=== PATIENT | male | born 1965 | race Caucasian/White ===

== ENCOUNTER 2020-05-23 18:54 | Observation (INO) ==
[2020-05-23] MEDS ORDERED: ALBUTEROL HFA 8 GM INHALER INH ONE (19:29)
[2020-05-23] MEDS ORDERED: SODIUM CHLORIDE 0.9% 1000ML 1,000 ML IV ONE (19:29)
--- NOTE | 2020-05-23 20:22 | Emergency Department Note ---
History of Present Illness General Chief complaint: Shortness of Breath/Dyspnea Stated complaint: COVID +, SHORT OF BREATH Time Seen by Provider: 05/23/20 19:03 History of Present Illness This patient is a 54-year-old male who presents ambulatory to the emergency department with complaints of an ongoing nonproductive cough, low-grade fever, flulike symptoms and shortness of breath that has gotten progressively worse over the last 2 weeks. The patient tested positive for Covid last week. He denies any nausea or vomiting. He has not received any medication for his symptoms. His appetite has decreased, however he is still urinating and defecating normally. Home Medications Medication Instructions Recorded Confirmed Type Mucinex Fast-Max Congest-Cough 10 ml PO HS PRN 05/23/20 05/27/20 History acetaminophen [Tylenol Extra 1,000 mg PO TID PRN 05/23/20 05/27/20 History Strength] dexamethasone 6 mg PO DAILY #8 tab 05/24/20 05/27/20 Rx Allergies Allergy/AdvReac Type Severity Reaction Status Date / Time UNKNOWN HERPES ZOSTER MED AdvReac Unknown Uncoded 05/27/20 15:11 Past Med/Surg History Medical History No pertinent past medical history Social History Smoking Status: Never smoker Second Hand Exposure: No; Hx Alcohol Use: Yes Alcohol type: beer Preferred Language: Cymraes Communication Ability: Effective Beliefs That Will Affect Care: None Current Living Situation: Spouse Feels Safe at Home: Yes Assistive Devices: None Review of Systems A total of 10 systems reviewed and were otherwise negative Physical Exam Vital Signs Vital Signs - 24 hr 05/23/20 19:26 05/23/20 19:51 05/23/20 20:00 Pulse Rate 83 82 Pulse Rate from SpO2 Sensor Respiratory Rate 18 21 Respiratory Effort / Characteristics Non-Labored Spontaneous Respiratory Pattern Regular Blood Pressure Blood Pressure Mean Pulse Oximetry Oxygen Delivery Method Room Air Room Air Room Air 05/23/20 20:06 05/23/20 20:10 05/23/20 20:20 Pulse Rate 76 73 73 Pulse Rate from SpO2 Sensor 76 73 73 Respiratory Rate 25 H 21 21 Respiratory Effort / Characteristics Respiratory Pattern Blood Pressure 133/91 Blood Pressure Mean 98 Pulse Oximetry 94 92 93 Oxygen Delivery Method Room Air Room Air Room Air 05/23/20 20:30 05/23/20 20:31 05/23/20 20:40 Pulse Rate 74 71 74 Pulse Rate from SpO2 Sensor 74 72 73 Respiratory Rate 19 21 10 L Respiratory Effort / Characteristics Respiratory Pattern Blood Pressure 137/88 Blood Pressure Mean 99 Pulse Oximetry 94 93 94 Oxygen Delivery Method Room Air Room Air Room Air 05/23/20 20:50 05/23/20 21:00 05/23/20 21:01 Pulse Rate 75 80 82 Pulse Rate from SpO2 Sensor 75 82 82 Respiratory Rate 19 23 26 H Respiratory Effort / Characteristics Respiratory Pattern Blood Pressure 149/88 H Blood Pressure Mean 98 Pulse Oximetry 93 94 94 Oxygen Delivery Method Room Air Room Air Room Air 05/23/20 21:10 05/23/20 21:20 05/23/20 21:30 Pulse Rate 75 78 78 Pulse Rate from SpO2 Sensor 75 79 78 Respiratory Rate 24 24 24 Respiratory Effort / Characteristics Respiratory Pattern Blood Pressure 136/90 Blood Pressure Mean 109 Pulse Oximetry 93 93 93 Oxygen Delivery Method Room Air Room Air Room Air 05/23/20 21:31 05/23/20 21:40 05/23/20 21:50 Pulse Rate 75 76 79 Pulse Rate from SpO2 Sensor 75 77 79 Respiratory Rate 22 25 H 24 Respiratory Effort / Characteristics Respiratory Pattern Blood Pressure Blood Pressure Mean Pulse Oximetry 93 92 91 Oxygen Delivery Method Room Air Room Air Room Air 05/23/20 22:10 05/23/20 22:20 05/23/20 22:30 Pulse Rate 80 76 76 Pulse Rate from SpO2 Sensor 80 76 76 Respiratory Rate 22 17 23 Respiratory Effort / Characteristics Respiratory Pattern Blood Pressure 137/82 Blood Pressure Mean 102 Pulse Oximetry 94 93 93 Oxygen Delivery Method Room Air Room Air Room Air 05/23/20 22:31 05/23/20 22:40 05/23/20 22:50 Pulse Rate 82 78 80 Pulse Rate from SpO2 Sensor 84 78 79 Respiratory Rate 26 H 23 22 Respiratory Effort / Characteristics Respiratory Pattern Blood Pressure Blood Pressure Mean Pulse Oximetry 93 92 91 Oxygen Delivery Method Room Air Room Air Room Air 05/23/20 23:00 05/23/20 23:01 Pulse Rate 77 76 Pulse Rate from SpO2 Sensor 78 76 Respiratory Rate 19 27 H Respiratory Effort / Characteristics Respiratory Pattern Blood Pressure 144/82 H Blood Pressure Mean 93 Pulse Oximetry 94 94 Oxygen Delivery Method Room Air Room Air Constitutional WD/WN, vitals as above Eyes EOM intact bilaterally ENMT external ear and nose normal, oropharynx normal Neck trachea midline Respiratory Tachypnea noted. No wheezing or rhonchi auscultated. Cardiovascular RRR, no murmur, no edema Gastrointestinal (Abdomen) normal bowel sounds, soft, nontender, no hepatosplenomegaly Musculoskeletal no cyanosis or clubbing, extremities motor strength 5/5 Skin no rashes, warm and dry Neurologic Alert and oriented x3. No focal motor deficits. Psychiatric Acting appropriately Course Course Patient was seen and examined Vital signs including blood pressure were reviewed medications list was verified with patient Labs were obtained, and a saline lock was established An order was placed for continuous cardiac monitoring. The monitor shows a rate of normal sinus with 70 rhythm. When I reevaluated the patient, he is not feeling much better. We discussed his results. He voiced understanding, and was comfortable with the disposition. The case was discussed with the [facility]. They agreed to evaluate the patient for possible inpatient management. He was ordered IV antibiotics and remained stable in the emergency department. Administered Medications Discontinued Medications Albuterol (Albuterol Hfa 8 Gm Inhaler) 2 puffs INH NOW ONE Stop: 05/23/20 19:30 Last Admin: 05/23/20 20:45 Dose: 2 puffs Documented by: [id number] Benzonatate (Benzonatate 100 Mg Capsule) 100 mg PO TID [facility] Stop: 06/23/20 08:59 Last Admin: 05/24/20 14:16 Dose: 100 mg Documented by: [id number] Admin: 05/24/20 09:15 Dose: 100 mg Documented by: [id number] Dexamethasone (Dexamethasone Sod Inj 4 Mg/Ml Vial) 6 mg IV NOW STA Stop: 05/23/20 22:56 Last Admin: 05/23/20 23:26 Dose: 6 mg Documented by: [id number] Enoxaparin Sodium (Enoxaparin Inj 40 Mg/0.4 Ml Syr) 40 mg SQ Q12H KYLER Stop: 06/23/20 00:49 Last Admin: 05/24/20 09:16 Dose: 40 mg Documented by: [id number] Admin: 05/24/20 01:48 Dose: 40 mg Documented by: [id number] Guaifenesin (Guaifenesin 600 Mg Tabcr) 1,200 mg PO Q12 KYLER Stop: 06/23/20 08:59 Last Admin: 05/24/20 09:15 Dose: 1,200 mg Documented by: [id number] Sodium Chloride (Nss 1000ml) 1,000 mls @ 999 mls/hr IV .Q1H1M ONE Stop: 05/23/20 20:29 Last Infusion: 05/23/20 21:15 Dose: 0 mls/hr Documented by: [id number] Admin: 05/23/20 20:06 Dose: 999 mls/hr Documented by: [id number] Azithromycin 500 mg/ Dextrose 255 mls @ 125 mls/hr IV ONE ONE Stop: 05/24/20 00:35 Last Infusion: 05/24/20 01:35 Dose: 0 mls/hr Documented by: [id number] Admin: 05/23/20 23:26 Dose: 125 mls/hr Documented by: [id number] Ceftriaxone Sodium (Rocephin) 2,000 mg in 70 mls @ 140 mls/hr IV NOW STA Stop: 05/23/20 23:02 Last Infusion: 05/24/20 01:36 Dose: 0 mls/hr Documented by: [id number] Admin: 05/23/20 23:00 Dose: 140 mls/hr Documented by: [id number] Dexamethasone Sodium Phosphate (6 mg/ Syringe) 1.5 mls @ 1 mls/min IV DAILY KYLER Stop: 06/23/20 08:59 Last Admin: 05/24/20 09:16 Dose: 1 mls/min Documented by: [id number] Ioversol (Optiray 320 125ml) 119 ml IV ONCE ONE Stop: 05/23/20 22:03 Last Admin: 05/23/20 22:03 Dose: 119 ml Documented by: [id number] Medical Decision Making Medical Records Attestation: I reviewed the patient's medical records. Home Medications Current Medication List: was personally reviewed by me Laboratory Data Attestation: I reviewed the patient's lab results. Result diagrams: 05/24/20 01:20 05/24/20 01:20 Lab Results 05/23/20 05/23/20 05/23/20 Range/Units 20:07 20:07 20:07 WBC Cancelled RBC Cancelled Hgb Cancelled Hct Cancelled MCV Cancelled MCH Cancelled MCHC Cancelled RDW Std Deviation Cancelled RDW Coeff of Antonio Cancelled Plt Count Cancelled MPV Cancelled Immature Gran % (Auto) Cancelled Neut % (Auto) Cancelled Lymph % (Auto) Cancelled [place] % (Auto) Cancelled Eos % (Auto) Cancelled Baso % (Auto) Cancelled Neut # (Auto) Cancelled Lymph # (Auto) Cancelled [place] # (Auto) Cancelled Eos # (Auto) Cancelled Baso # (Auto) Cancelled Immature Gran # (Auto) Cancelled Absolute Nucleated RBC Cancelled Nucleated RBC % (auto) Cancelled Neutrophils % (Manual) Cancelled Band Neutrophils % Cancelled Lymphocytes % (Manual) Cancelled Prolymphocyte % Cancelled Reactive Lymphs % (Man) Cancelled Monocytes % (Manual) Cancelled Eosinophils % (Manual) Cancelled Basophils % (Manual) Cancelled Metamyelocytes % (Man) Cancelled Myelocytes % (Man) Cancelled Promyelocytes % (Man) Cancelled Blast Cells % (Manual) Cancelled Plasma Cell % (Manual) Cancelled Other Cells % Cancelled Nucleated RBC % Cancelled Neutrophils # (Manual) Cancelled Band Neutrophils # Cancelled Total Absolute Neuts Cancelled Lymphocytes # (Manual) Cancelled Prolymphocyte # Cancelled Reactive Lymphs # Cancelled Total Abs Lymphocytes Cancelled Monocytes # (Manual) Cancelled Eosinophils # (Manual) Cancelled Basophils # (Manual) Cancelled Metamyelocytes # (Man) Cancelled Myelocytes # (Manual) Cancelled Promyelocytes # (Man) Cancelled Blast Cells # (Man) Cancelled Plasma Cell # (Manual) Cancelled Other Cells # Cancelled Nucleated RBCs # (Man) Cancelled Hypersegmented Neuts Cancelled Hyposegmented Neuts Cancelled Hypogranular Neuts Cancelled Large Granular Lymphs Cancelled # Lrg Granular Lymphs Cancelled Hairy Cells Cancelled Smudge Cells Cancelled Toxic Granulation Cancelled Toxic Vacuolation Cancelled Dohle Bodies Cancelled Yelena Rods Cancelled Platelet Estimate Cancelled Hypogranular Platelets Cancelled Clumped Platelets Cancelled Giant Platelets Cancelled Platelet Satelliting Cancelled RBC Morphology Cancelled Polychromasia Cancelled Hypochromasia Cancelled Poikilocytosis Cancelled Basophilic Stippling Cancelled Anisocytosis Cancelled Microcytosis Cancelled Macrocytosis Cancelled Spherocytes Cancelled Pappenheimer Bodies Cancelled Sickle Cells Cancelled Target Cells Cancelled Tear Drop Cells Cancelled Ovalocytes Cancelled Stomatocytes Cancelled Curiel-Stamps Bodies Cancelled Echinocytes Cancelled Acanthocytes (Spur) Cancelled Rouleaux Cancelled RBC Agglutinates Cancelled Schistocytes Cancelled RBC Morph Comment Cancelled ESR (0-14) mm/hr Sezary Cell Cancelled Sodium 137 (136-145) mmol/L Potassium 4.3 (3.5-5.1) mmol/L Chloride 103 (98-107) mmol/L Carbon Dioxide 28 (21-32) mmol/L Anion Gap 6.0 (3-11) BUN 13 (7-18) mg/dl Creatinine 1.24 (0.6-1.4) mg/dl Est Cr Clr Drug Dosing 84.5 ml/min Est GFR ( Amer) 75.9 Est GFR (Non-Af Amer) 65.5 BUN/Creatinine Ratio 10.7 (10-20) Glucose 92 (70-99) mg/dl Calcium 8.9 (8.5-10.1) mg/dl Phosphorus (2.5-4.9) mg/dl Magnesium (1.8-2.4) mg/dl Ferritin (8-388) ng/ml Total Bilirubin 0.4 (0.2-1) mg/dl AST 68 H (15-37) U/L ALT 102 H (12-78) U/L Alkaline Phosphatase 139 H (45-117) U/L Troponin I < 0.015 (0-0.045) ng/ml C-Reactive Protein (0-0.29) mg/dl Total Protein 7.5 (6.4-8.2) gm/dl Albumin 3.4 (3.4-5.0) gm/dl Globulin 4.1 H (2.5-4.0) gm/dl Albumin/Globulin Ratio 0.8 L (0.9-2) Influ A Molecular Assay Negative (Negative) Influ B Molecular Assay Negative (Negative) 05/23/20 05/23/20 05/23/20 Range/Units 20:07 21:07 21:07 WBC 4.57 L RBC 4.84 Hgb 15.4 Hct 44.1 MCV 91.1 MCH 31.8 MCHC 34.9 RDW Std Deviation 41.4 RDW Coeff of Antonio 12.2 Plt Count 206 MPV 10.3 Immature Gran % (Auto) 0.7 Neut % (Auto) 62.3 Lymph % (Auto) 26.3 [place] % (Auto) 10.5 Eos % (Auto) 0.0 Baso % (Auto) 0.2 Neut # (Auto) 2.85 Lymph # (Auto) 1.20 [place] # (Auto) 0.48 Eos # (Auto) 0.00 Baso # (Auto) 0.01 Immature Gran # (Auto) 0.03 H Absolute Nucleated RBC Nucleated RBC % (auto) Neutrophils % (Manual) Band Neutrophils % Lymphocytes % (Manual) Prolymphocyte % Reactive Lymphs % (Man) Monocytes % (Manual) Eosinophils % (Manual) Basophils % (Manual) Metamyelocytes % (Man) Myelocytes % (Man) Promyelocytes % (Man) Blast Cells % (Manual) Plasma Cell % (Manual) Other Cells % Nucleated RBC % Neutrophils # (Manual) Band Neutrophils # Total Absolute Neuts Lymphocytes # (Manual) Prolymphocyte # Reactive Lymphs # Total Abs Lymphocytes Monocytes # (Manual) Eosinophils # (Manual) Basophils # (Manual) Metamyelocytes # (Man) Myelocytes # (Manual) Promyelocytes # (Man) Blast Cells # (Man) Plasma Cell # (Manual) Other Cells # Nucleated RBCs # (Man) Hypersegmented Neuts Hyposegmented Neuts Hypogranular Neuts Large Granular Lymphs # Lrg Granular Lymphs Hairy Cells Smudge Cells Toxic Granulation Toxic Vacuolation Dohle Bodies Yelena Rods Platelet Estimate Hypogranular Platelets Clumped Platelets Giant Platelets Platelet Satelliting RBC Morphology Polychromasia Hypochromasia Poikilocytosis Basophilic Stippling Anisocytosis Microcytosis Macrocytosis Spherocytes Pappenheimer Bodies Sickle Cells Target Cells Tear Drop Cells Ovalocytes Stomatocytes Curiel-Stamps Bodies Echinocytes Acanthocytes (Spur) Rouleaux RBC Agglutinates Schistocytes RBC Morph Comment ESR 21 H (0-14) mm/hr Sezary Cell Sodium (136-145) mmol/L Potassium (3.5-5.1) mmol/L Chloride (98-107) mmol/L Carbon Dioxide (21-32) mmol/L Anion Gap (3-11) BUN (7-18) mg/dl Creatinine (0.6-1.4) mg/dl Est Cr Clr Drug Dosing ml/min Est GFR ( Amer) Est GFR (Non-Af Amer) BUN/Creatinine Ratio (10-20) Glucose (70-99) mg/dl Calcium (8.5-10.1) mg/dl Phosphorus 3.2 (2.5-4.9) mg/dl Magnesium 2.1 (1.8-2.4) mg/dl Ferritin 1651.3 H (8-388) ng/ml Total Bilirubin (0.2-1) mg/dl AST (15-37) U/L ALT (12-78) U/L Alkaline Phosphatase (45-117) U/L Troponin I (0-0.045) ng/ml C-Reactive Protein 5.93 H (0-0.29) mg/dl Total Protein (6.4-8.2) gm/dl Albumin (3.4-5.0) gm/dl Globulin (2.5-4.0) gm/dl Albumin/Globulin Ratio (0.9-2) Influ A Molecular Assay (Negative) Influ B Molecular Assay (Negative) Imaging Data Attestation: I personally reviewed and interpreted this imaging study as follows: Radiologist's Impression: CT chest for PE per stat rad No pulmonary embolus Bilateral pulmonary infiltrates Small low-attenuation foci in the thyroid gland ECG Data Attestation: I personally reviewed and interpreted this ECG as follows: Indication: + SOB/dyspnea Rate (beats per minute): 74 Rhythm: + normal sinus Prescription Drug Monitoring Prescription Drug Findings: No ectopy or ischemic changes present. No prior EKGs for comparison. MDM Narrative Bronchitis, pneumonia, infectious etiology such as viral pneumonia/Covid, bacterial pneumonia, anemia, dehydration, cardiac ischemia, among others were considered This patient is a 54-year-old male who presents emergency department with ongoing flulike symptoms and increasing shortness of breath/hypoxia in the setting of testing positive for Covid. On exam, his vital signs were stable. His oxygen saturation on room air was in the low 90s. He does not have any significant comorbidities, however he seems to be feeling more short of breath and getting worse. CT was consistent with bilateral pneumonia. For this reason, a full work-up was performed. Labs reveal no leukocytosis. He is not anemic. He however did not feel any better in the emergency department. His symptoms have been ongoing. Hospitalist consultation was felt to be warranted. Impression & Plan Pneumonia Discharge Plan Visit Data Chief Complaint: Shortness of Breath/Dyspnea Stated Complaint: COVID +, SHORT OF BREATH ED Provider: Jasen Rivero ED Midlevel Provider: Angela Roque Discharge Problem: Pneumonia Patient Disposition: Admitted As Inpatient Condition: Good Discharge Instructions Interventions: ED Discharge Assessment Last Done: 05/24/20 00:29
[2020-05-23 20:39] LABS: Alanine Aminotransferase 102 U/L (12-78); Albumin Level 3.4 gm/dl (3.4-5.0); Aspartate Aminotransferase 68 U/L (15-37); BUN Creatinine Ratio 10.7 (10-20); Blood Urea Nitrogen 13 mg/dl (7-18); Calcium 8.9 mg/dl (8.5-10.1); Carbon Dioxide 28 mmol/L (21-32); Chloride 103 mmol/L (98-107); Creatinine Clr Calc Pharmacy 84.5 ml/min; Est GFR (African American) 75.9; Est GFR (Non-African American) 65.5; Glucose 92 mg/dl (70-99); Potassium 4.3 mmol/L (3.5-5.1); Sodium 137 mmol/L (136-145)
[2020-05-23 20:44] LABS: Albumin Globulin Ratio 0.8 (0.9-2); Alkaline Phosphatase 139 U/L (45-117); Bilirubin,Total 0.4 mg/dl (0.2-1); Globulin 4.1 gm/dl (2.5-4.0); Total Protein 7.5 gm/dl (6.4-8.2); Troponin I < 0.015 ng/ml (0-0.045)
[2020-05-23 21:22] LABS: Basophils # (auto) 0.01 K/uL (0-0.2); Basophils % (auto) 0.2 %; Hematocrit (blood only) 44.1 % (42-52); Hemoglobin 15.4 g/dL (14.0-18.0); Immature Granulocytes # (auto) 0.03 K/uL (0.00-0.02); Immature Granulocytes % (auto) 0.7 %; Lymphocytes % (auto) 26.3 %; Mean Corpuscular Hemoglobin 31.8 pg (25-34); Mean Corpuscular Hgb Conc 34.9 g/dL (32-36); Mean Corpuscular Volume 91.1 fL (80-100); Mean Platelet Volume 10.3 fL (7.4-10.4); Monocytes # (auto) 0.48 K/uL (0.11-0.59); Monocytes % (auto) 10.5 %; Neutrophils # (auto) 2.85 K/uL (1.4-6.5); Neutrophils % (auto) 62.3 %; Platelet Count 206 K/uL (130-400); RDW Coefficient of Variation 12.2 % (11.5-14.5); RDW Standard Deviation 41.4 fL (36.4-46.3); Red Blood Count 4.84 M/uL (4.7-6.1); White Blood Count 4.57 K/uL (4.8-10.8)
[2020-05-23 21:23] LABS: Influenza A virus by PCR Negative (Negative); Influenza B virus by PCR Negative (Negative)
[2020-05-23] MEDS ORDERED: OPTIRAY 320 125ml IV ONE (22:02)
[2020-05-23] MEDS ORDERED: AZITHROMYCIN 500 MG in DEXTROSE 5% 250 ML IV ONE (22:33)
[2020-05-23] MEDS ORDERED: cefTRIAXone SODIUM 2,000 MG/70 ML BAG IV STA (22:33)
[2020-05-23] MEDS ORDERED: DEXAMETHASONE SOD INJ 4 MG/ML VIAL IV STA (22:55)
--- NOTE | 2020-05-23 23:44 | History & Physical Report ---
Date of Service May 23, 2020 Assessment & Plan (1) COVID-19: Serge Otoole is a 54yo C male with no significant past medical history presenting with Covid-19 infection, associated SOB and hypoxia reported from home. Patient developed symptoms 8 days ago. He was tested 6 days ago and was resulted as positive 4 days ago. Patient with persistent SOB, fatigue, cough and inability to take deep breaths. Reported to be 87% on home pulse oximeter - saturations ranging 91-94% on RA here. Patient with leukopenia - WBC=4.57 Mildly elevated LFTs - AST=68, LII=081 OU=935 -Admit to medical floor -Maintain isolation precautions - Airborne/Contact -Supplemental O2 as needed to maintain saturations >92% -Check inflammatory markers - ESR, CRP, Ferritin, Ddimer -Check Procalcitonin -Incentive spirometry - encourage use q 2 hours while awake -Dexamethasone 6mg IV daily -Tylenol, Tessalon, Mucinex, Zofran as needed for symptom relief -Lovenox 40mg BID for DVT ppx -Repeat LFTs in AM - if continue to be abnormal consider liver imaging F/E/N - Heplock. Monitor electrolytes and replete as needed. Regular diet as tolerated Ppx - Lovenox 40mg BID Code - Full Dispo - Admit to medical/Covid Present on Admission?: Yes History of Present Illness Primary Care Provider: Vargas Cortez MD Allergies Allergy/AdvReac Type Severity Reaction Status Date / Time UNKNOWN HERPES ZOSTER MED AdvReac Unknown Uncoded 05/23/20 21:05 Home Medications Medication Instructions Recorded Confirmed Type acetaminophen [Tylenol Extra 1,000 mg PO TID PRN 05/23/20 05/23/20 History Strength] [id number]-[id number] 10 ml PO HS PRN 05/23/20 05/23/20 History [Mucinex Fast-Max Congest-Cough] Past Med/Surg History Medical History No pertinent past medical history Social History Smoking Status: Never smoker Feels Safe at Home: Yes Results & Data Results & Data ([facility]) Vital Signs (Past 12 Hours) Vital Signs Temp Pulse Resp BP Pulse Ox 05/23/20 23:01 76 27 H 94 05/23/20 23:00 77 19 144/82 H 94 05/23/20 22:50 80 22 91 05/23/20 22:40 78 23 92 05/23/20 22:31 82 26 H 93 05/23/20 22:30 76 23 137/82 93 05/23/20 22:20 76 17 93 05/23/20 22:10 80 22 94 05/23/20 21:50 79 24 91 05/23/20 21:40 76 25 H 92 05/23/20 21:31 75 22 93 05/23/20 21:30 78 24 136/90 93 05/23/20 21:20 78 24 93 05/23/20 21:10 75 24 93 05/23/20 21:01 82 26 H 94 05/23/20 21:00 80 23 149/88 H 94 05/23/20 20:50 75 19 93 05/23/20 20:40 74 10 L 94 05/23/20 20:31 71 21 93 05/23/20 20:30 74 19 137/88 94 05/23/20 20:20 73 21 93 05/23/20 20:10 73 21 92 05/23/20 20:06 76 25 H 133/91 94 05/23/20 20:00 82 21 05/23/20 19:51 83 18 05/23/20 18:56 36.4 C L 18 136/92 92 Code Status & VTE Plan VTE Prophylaxis Plan VTE Prophylaxis will be ordered: Yes PG Care Time/CCT Total # of Minutes Spent Total Time Spent with Patient: Total time spent is greater than 50% in coordination of care (as documented) at patient's floor/unit and/or counseling patient: Coding Level of Care Code 66473 Initial Inpt Care Lvl 2 Diagnoses COVID-19 U07.1
[2020-05-24] MEDS ORDERED: ACETAMINOPHEN 325 MG TAB PO PRN (00:50)
[2020-05-24] MEDS ORDERED: ONDANSETRON INJ 2 MG/ML 2 ML VIAL IV PRN (00:50)
[2020-05-24] MEDS ORDERED: DEXAMETHASONE SOD INJ 10 MG/ML VIAL IV SCH (00:50)
[2020-05-24 01:11] LABS: C Reactive Protein 5.93 mg/dl (0-0.29); Ferritin 1651.3 ng/ml (8-388); Magnesium 2.1 mg/dl (1.8-2.4); Phosphorus 3.2 mg/dl (2.5-4.9)
[2020-05-24 01:32] LABS: Eosinophils # (auto) 0.01 K/uL (0-0.5); Eosinophils % (auto) 0.2 %; Hematocrit (blood only) 44.4 % (42-52); Hemoglobin 15.5 g/dL (14.0-18.0); Immature Granulocytes # (auto) 0.03 K/uL (0.00-0.02); Immature Granulocytes % (auto) 0.7 %; Lymphocytes # (auto) 0.64 K/uL (1.2-3.4); Lymphocytes % (auto) 14.4 %; Mean Corpuscular Hemoglobin 31.6 pg (25-34); Mean Corpuscular Hgb Conc 34.9 g/dL (32-36); Mean Corpuscular Volume 90.6 fL (80-100); Mean Platelet Volume 10.3 fL (7.4-10.4); Monocytes # (auto) 0.19 K/uL (0.11-0.59); Monocytes % (auto) 4.3 %; Neutrophils # (auto) 3.57 K/uL (1.4-6.5); Neutrophils % (auto) 80.4 %; Platelet Count 219 K/uL (130-400); RDW Coefficient of Variation 12.3 % (11.5-14.5); RDW Standard Deviation 41.2 fL (36.4-46.3); White Blood Count 4.44 K/uL (4.8-10.8)
[2020-05-24] MEDS: ENOXAPARIN INJ 40 MG/0.4 ML SYR SQ SCH ×2 (01:48→09:16)
[2020-05-24 01:52] LABS: D Dimer 1140 ug/L FEU (0-500)
[2020-05-24 01:53] LABS: BUN Creatinine Ratio 10.7 (10-20); Bilirubin Direct 0.2 mg/dl (0-0.2); Calcium 8.1 mg/dl (8.5-10.1); Creatinine Clr Calc Pharmacy 96.6 ml/min; Est GFR (African American) 88.7; Est GFR (Non-African American) 76.5; Potassium 3.8 mmol/L (3.5-5.1)
[2020-05-24 01:56] LABS: Bilirubin,Total 0.4 mg/dl (0.2-1)
--- NOTE | 2020-05-24 07:30 | CT Scan Report ---
CHEST CTA for PULMONARY ARTERIES CT DOSE: 572.52 mGycm HISTORY: Shortness of breath. Positive Covid. TECHNIQUE: Multiaxial CT images of the chest were performed following the intravenous administration of contrast to evaluate the pulmonary arteries. Maximal intensity projection images were also obtaine d. A dose lowering technique was utilized adhering to the principles of ALARA. COMPARISON STUDY: None. FINDINGS: Limited views of the upper abdomen demonstrate a normal liver and spleen. There are few gege ateral renal hypodense nodules with the largest on the right measuring 1 cm. Mild right hilar lymphad enopathy. This is likely reactive. The heart is normal in size. Trace right pleural effusion. Normal caliber thoracic aorta with no evidence for dissection. No filling defects within the pulmonary arter ies to suggest a pulmonary embolus. No pneumothorax. In the central airways are patent. Hyum-sm-ceglw ate scattered patchy groundglass airspace opacities seen within the lungs. These are most pronounced within the bilateral lower lobes. Findings are consistent with a viral pneumonia. IMPRESSION: 1. No evidence for pulmonary embolus. 2. Bilateral scattered patchy airspace opacities consistent with a viral pneumonia. ACT 112: Negative or not required by law. Electronically signed by: Alejandro Green M.D. 05/24/2020 7:29 AM
[2020-05-24] MEDS ORDERED: guaiFENesin 600 MG TABCR PO SCH (09:00)
[2020-05-24] MEDS ORDERED: dexAMETHasone 6 MG in SYRINGE 0 ML IV SCH (09:00)
[2020-05-24] MEDS: BENZONATATE 100 MG CAPSULE PO SCH ×2 (09:15→14:16)
--- NOTE | 2020-05-24 11:30 | Discharge Summary ---
Date of Service May 24, 2020 Admission HPI Per Admitting Provider No HPI completed-pt admitted with SOB and hypoxia, COVID-19 PNA Principal Diagnosis COVID-19 Pneumonia, Acute respiratory failure with hypoxia Discharge Exam Constitutional WD/WN, vitals as above Eyes + anicteric sclerae Neck trachea midline, no thyromegaly Respiratory normal respiratory effort, lungs clear to auscultation Cardiovascular RRR, no murmur, no edema Chest (Breasts) Chest: normal inspection of chest Gastrointestinal (Abdomen) normal bowel sounds, soft, nontender, no hepatosplenomegaly Musculoskeletal Extremities: extremities normal to inspection; no cyanosis and no clubbing Skin no rashes, warm and dry Neurologic moves all extremities and awake; no focal motor deficits Psychiatric A+Ox3, euthymic affect Lymphatic no lymphedema Discharge Data Allergies Allergy/AdvReac Type Severity Reaction Status Date / Time UNKNOWN HERPES ZOSTER MED AdvReac Unknown Uncoded 05/23/20 21:05 Consultations 05/23/20 22:55 ED Decision to Admit Stat Ordered Studies 05/23/20 19:29 CT angio chest PE protocol Urgent CXR Hospital Course (1) COVID-19: Serge Otoole is a 54yo C male with no significant past medical history presenting with Covid-19 infection, associated SOB and hypoxia reported from home. Patient developed symptoms 8 days [employer]. He was tested 6 days [employer] and was resulted as positive. Patient with persistent SOB, fatigue, cough and inability to take deep breaths. Reported to be 87% on home pulse oximeter - saturations ranging 91-94% on RA here. Patient with leukopenia - WBC=4.57 Mildly elevated LFTs - AST=68, NZZ=069 AY=[address] with PNA He was admitted and started on IV dexamethasone. Hypoxia improved and he was weaned off O2. He never dropped below 90% on room air with 6 min walk test with resp therapist prior to discharge He was alonso po, feeling much better. Procalitonin ws negative and further antibiotics were deferred. CTA chest neg for PE but shows viral -appearing PNA -stable for dc to home--> complete 10 day course of decadron po No role for Remdesevir or convalescent plasma continue home quarantine advised to ambulate frequently at home to prevent DVT -Incentive spirometry - encourage use q 2 hours while awake -Dexamethasone 6mg IV daily -Tylenol prn -Lovenox 40mg BID for DVT ppx -Repeat LFTs improved, likely elevated secondary to viral infection Ppx - Lovenox 40mg BID Code - Full Dispo - stable for dc to home (2) Acute respiratory failure with hypoxia: (3) DVT prophylaxis: (4) Elevated LFTs: Total Time Total Time Spent Total Time Spent (In Minutes): 35 min Total Time Includes: Examination of the Patient, Discharge Planning and Medication Reconciliation Discharge Plan Discharge Items Patient Disposition: Home - Home Health Services Reason For Visit: COVID-19,HYPOXIA Discharge Diagnosis: COVID-19 Pneumonia, Hypoxia Condition on Discharge: Good Activity: As commented below Lifting: Gradually increase as tolerated Bathing: No limitations Exercise/Sports: Gradually increase as tolerated Non-emergency contact: Primary Care Provider Call non-emergency contact if: you have any medication questions, your symptoms worsen and you have a fever Follow-up/Referrals: Vargas Cortez MD [Primary Care Provider] - (Please follow up within 1-2 weeks) Diet: Regular Addtl Attending Provider Instructions: Please finish out the course of dexamethasone for 8 more days at home. You no longer needed any oxygen at the time of discharge. If you develop worsening shortness of breath, chest pain, leg pain or swelling, please return right away to the hospital. You may continue to have some fevers for a few more days but they should be getting better and not higher than previous. If you spike a fever greater than 101 degrees, please call your doctor. You should remain quarantined in your house through 06/04/20. Home Isolation COVID-19 Instructions The following information about Home Isolation is from the CDC Website: https://www.cdc.gov/coronavirus/2019-ncov/hcp/jcpvghin-vdsvctg-mjgwhw.html Stay home except to get medical care People who are mildly ill with COVID-19 are able to isolate at home during their illness. You should restrict activities outside your home, except for getting medical care. Do not go to work, school, or public areas. Avoid using public transportation, ride-sharing, or taxis. Separate yourself from other people and animals in your home People: As much as possible, you should stay in a specific room and away from other people in your home. Also, you should use a separate bathroom, if available. Animals: You should restrict contact with pets and other animals while you are sick with COVID-19, just like you would around other people. Although there have not been reports of pets or other animals becoming sick with COVID-19, it is still recommended that people sick with COVID-19 limit contact with animals until more information is known about the virus. When possible, have another member of your household care for your animals while you are sick. If you are sick with COVID-19, avoid contact with your pet, including petting, snuggling, being kissed or licked, and sharing food. If you must care for your pet or be around animals while you are sick, wash your hands before and after you interact with pets and wear a face mask. Call ahead before visiting your doctor If you have a medical appointment, call the healthcare provider and tell them that you have or may have COVID-19. This will help the healthcare providers office take steps to keep other people from getting infected or exposed. Wear a face mask You should wear a face mask when you are around other people (e.g., sharing a room or vehicle) or pets and before you enter a healthcare providers office. If you are not able to wear a face mask (for example, because it causes trouble breathing), then people who live with you should not stay in the same room with you, or they should wear a face mask if they enter your room. Cover your coughs and sneezes Cover your mouth and nose with a tissue when you cough or sneeze. Throw used tissues in a lined trash can. Immediately wash your hands with soap and water for at least 20 seconds or, if soap and water are not available, clean your hands with an alcohol-based hand surveillance director that contains at least 60% alcohol. Clean your hands often Wash your hands often with soap and water for at least 20 seconds, especially after blowing your nose, coughing, or sneezing; going to the bathroom; and before eating or preparing food. If soap and water are not readily available, use an alcohol-based hand surveillance director with at least 60% alcohol, covering all surfaces of your hands and rubbing them together until they feel dry. Soap and water are the best option if hands are visibly dirty. Avoid touching your eyes, nose, and mouth with unwashed hands. Avoid sharing personal household items You should not share dishes, drinking glasses, cups, eating utensils, towels, or bedding with other people or pets in your home. After using these items, they should be washed thoroughly with soap and water. Clean all high-touch surfaces everyday High touch surfaces include counters, tabletops, doorknobs, bathroom fixtures, toilets, phones, keyboards, tablets, and bedside tables. Also, clean any surfaces that may have blood, stool, or body fluids on them. Use a household cleaning spray or wipe, according to the label instructions. Labels contain instructions for safe and effective use of the cleaning product including precautions you should take when applying the product, such as wearing gloves and making sure you have good ventilation during use of the product. Monitor your symptoms Seek prompt medical attention if your illness is worsening (e.g., difficulty breathing).Beforeseeking care, call your healthcare provider and tell them that you have, or are being evaluated for, COVID-19. Put on a face mask before you enter the facility. These steps will help the healthcare providers office to keep other people in the office or waiting room from getting infected or exposed. Ask your healthcare provider to call the local or state health department. Persons who are placed under active monitoring or facilitated self- monitoring should follow instructions provided by their local health department or occupational health professionals, as appropriate. When working with your local health department check their available hours. If you have a medical emergency and need to call 911, notify the dispatch personnel that you have, or are being evaluated for COVID-19. If possible, put on a face mask before emergency medical services arrive. Discontinuing home isolation Patients with confirmed COVID-19 should remain under home isolation precautions until the risk of secondary transmission to others is thought to be low. The decision to discontinue home isolation precautions should be made on a [id number] basis, in consultation with healthcare providers and state and local health departments. Pending Studies at Discharge: No Stand-Alone Forms: My [facility] [address] Medications and DC Order Prescriptions: New dexamethasone 6 mg tablet 6 mg PO DAILY Qty: 8 RF: 0 Continued acetaminophen [Tylenol Extra Strength] 500 mg Tablet 1,000 mg PO TID PRN (Reason: Fever Or Pain) RF: 0 Mucinex Fast-Max Congest-Cough 2.5-5-100 mg/5 mL Liquid 10 ml PO HS PRN (Reason: Congestion) RF: 0 Discharge Orders: Discharge Order (Routine); Ordered 05/24/20 Ordered By: Sharee Liriano/Other Patient Handouts: Proning COVID-19 Admission Data Admit Date/Time: 05/23/20 23:24 Attending Provider: Sharee Galindo Admit Provider: Micki Casanova Primary Care Provider: Vargas Cortez Other Providers: Micki Casanova Coding Level of Care Code D/C Day Management >30 mins Diagnoses COVID-19 U07.1 Acute respiratory failure with hypoxia J96.01 DVT prophylaxis Z29.9 Elevated LFTs R79.89
--- NOTE | 2020-05-24 23:48 | Electrocardiogram Report ---
Test Reason : Blood Pressure : / mmHG Vent. Rate : 074 BPM Atrial Rate : 074 BPM P-R Int : 174 ms QRS Dur : 082 ms QT Int : 374 ms P-R-T Axes : 017 018 025 degrees QTc Int : 415 ms Normal sinus rhythm Normal ECG No previous ECGs available Confirmed by Pedro Sal ([id number]) on 05/24/2020 11:48:05 PM Referred By: REFERRED SELF Confirmed By:Pedro Sal
== END 2020-05-24 14:39 | disposition home health service (06) ==
LOC: ED 18:54 → 3E 23:24 → SUATTDRO 23:24 → INTOOBSV 23:24 → 3E 05-24 00:29